=== PATIENT | male | born 1980 | race Caucasian/White ===

== ENCOUNTER 2018-05-30 08:16 | Inpatient (IN) | payer OTHER ==
[2018-05-27 13:43] VITALS: BMI 27.2
[2018-05-30] MEDS ORDERED: CEFAZOLIN/Water 2 GM/20 ML SYRINGE ONE (08:48)
[2018-05-30 09:24] LABS: Hemoglobin 15.1 g/dL (14.0-18.0); Mean Corpuscular HGB CONC 35.1 g/dL (32.0-36.0); Mean Corpuscular Hemoglobin 32.1 pg (27.0-31.0); Mean Corpuscular Volume 91.6 fL (78.0-98.0); Mean Platelet Volume 7.4 fL (7.4-10.4); Platelet Count 242 thou/uL (130-400); Red Blood Cell (RBC) Count 4.71 mill/uL (4.70-6.10); White Blood Cell (WBC) Count 5.7 thou/uL (4.8-10.8)
[2018-05-30 09:54] LABS: Anion Gap 12 mmol/L (10-20); BUN (Urea Nitrogen) 13 mg/dL (8.9-20.6); Calc. Creatinine Clearance 123 mL/min (70-130); Calcium 9.6 mg/dL (7.8-10.44); Carbon Dioxide 26 mmol/L (22-29); Chloride 103 mmol/L (98-107); Estimated GFR-MDRD 85; Glucose 88 mg/dL (70-105); Potassium 4.1 mmol/L (3.5-5.1); Sodium 137 mmol/L (136-145)
[2018-05-30] MEDS ORDERED: Midazolam HCl 2 mg/2 ml Vial ONE (11:15)
[2018-05-30] MEDS ORDERED: Fentanyl 100 MCG/2 ML VIAL ONE ×3 (11:15→13:42)
[2018-05-30] MEDS ORDERED: Sodium Chloride 0.9% 10 ML ONE (11:17)
[2018-05-30] MEDS ORDERED: HYDROmorphone 0.5 MG/0.5 ML SYRINGE ONE (11:46)
--- NOTE | 2018-05-30 13:03 | OP ---
DATE OF PROCEDURE: 05/30/2018 SURGEON: Mike Hansen M.D. OPERATOR AUTOMATED PROCESS: Carmina Bennett PROCEDURE: Anterior cervical discectomy C5-6, interbody arthrodesis, intravertebral biomechanical de vice, local morselized autograft, demineralized bone matrix, anterior titanium instrumentation C5-6. PROCEDURE IN DETAIL: The patient was brought to the operating room, intubated. He was positioned lyle pine, head in modest extension on a gel-filled donut. Incision was made in the right precervical are a and dissecting medial to the sternocleidomastoid muscle, identified the anterior cervical spine and our level was confirmed by x-ray. We debrided anterior osteophytes, placed distraction across the d isk space and using the operating microscope and microdissection techniques, completely decompressed intravertebral disk down to the level of the dura completely decompressed the neural elements from fo ramen to foramen. The bony endplates were then decorticated for the purpose of arthrodesis and appro priately sized intravertebral biomechanical PEEK device was brought into the field, filled with demin eralized bone matrix and local morselized autograft, and tapped into place securely at C5-6. Next, a n anterior plate was brought in the field and secured to C5 and C6 using two 14 mm screws at each lev el. The wound was then extensively irrigated, immaculate hemostasis was secured, and the wound was c losed in anatomic layers.
== END 2018-05-30 15:43 | disposition home or self-care (01) | DRG 473 ==
LOC: SURG A 08:16 → EDSTATUS 13:01
PROVIDERS: ADMIT Neurological Surgery; ATTEND Neurological Surgery
PROC: 0RG10A0 Fusion of Cervical Vertebral Joint with Interbody Fusion Device, Anterior Approach, Anterior Column, Open Approach (ICD-10-PCS; principal; 2018-05-30)
PROC: 0RB30ZZ Excision of Cervical Vertebral Disc, Open Approach (ICD-10-PCS; 2018-05-30)
DX: M50.122 Cervical disc disorder at C5-C6 level with radiculopathy (principal); I10 Essential (primary) hypertension; E78.5 Hyperlipidemia, unspecified
CPT/HCPCS: 76001; 80048; 85027; 93005; 93010; 96374; A4216; C1713; C1776; J1170; J2250; J3010; J3490